=== PATIENT | female | born 1980 | race Caucasian/White ===

== ENCOUNTER 2016-12-31 00:49 | Emergency (ER) | payer OTHER ==
[2016-12-31] MEDS ORDERED: HUMALOG100 UNIT/1 (01:04)
[2016-12-31] MEDS ORDERED: LANTUS100 U/ML (01:04)
[2016-12-31] MEDS ORDERED: SYNTHROID (01:04)
[2016-12-31] MEDS ORDERED: LISINOPRIL (01:04)
[2016-12-31] MEDS ORDERED: ZANAFLEX (01:05)
[2016-12-31] MEDS ORDERED: GRALISE1 EACH (01:05)
== END 2016-12-31 01:53 | disposition home or self-care (01) ==
LOC: SED 00:49
DX: K08.89 Other specified disorders of teeth and supporting structures (principal); I10 Essential (primary) hypertension; E11.9 Type 2 diabetes mellitus without complications; E03.9 Hypothyroidism, unspecified; Z88.5 Allergy status to narcotic agent; Z88.8 Allergy status to other drugs, medicaments and biological substances
CPT/HCPCS: 99283